=== PATIENT | male | born 1960 | race Caucasian/White ===

== ENCOUNTER → 2021-07-23 | Day surgery (SDC) | payer BC | END | disposition home or self-care (01) | LOC: MSO 08:22 | DX: K52.9 Noninfective gastroenteritis and colitis, unspecified (principal); G47.33 Obstructive sleep apnea (adult) (pediatric); Z99.89 Dependence on other enabling machines and devices; Z85.828 Personal history of other malignant neoplasm of skin; Z80.0 Family history of malignant neoplasm of digestive organs | CPT/HCPCS: 00811; J2704; J3010; J7120 ==

== ENCOUNTER → 2021-11-08 | Outpatient (CLI) | payer BC | LOC: LAB 09:36 | DX: K52.9 Noninfective gastroenteritis and colitis, unspecified (principal) ==

== ENCOUNTER → 2021-11-13 | Outpatient (CLI) | payer BC | LOC: LAB 09:12 | DX: K52.9 Noninfective gastroenteritis and colitis, unspecified (principal) ==

== ENCOUNTER 2022-01-08 09:22 | Emergency (ER) | payer BC ==
[~2022-01-08] VITALS: Ht 190.5 cm; Wt 131.3 kg
[2022-01-08 10:23] LABS: HEMATOCRIT 44.8 % (42.0-52.0); HEMOGLOBIN 14.9 g/dL (13.5-18.0); MEAN CELL VOLUME 85 fl (78-100); MEAN CORPUSCULAR HEMOGLOBIN 28 pg (27-31); MEAN CORPUSCULAR HGB CONC 33 g/dL (33-37); MEAN PLATELET VOLUME 10.3 fl (7.4-10.4); PLATELET COUNT 289 K/mm3 (130-400); RED BLOOD COUNT 5.29 M/mm3 (4.20-5.60); RED CELL DISTRIBUTION WIDTH 13.8 % (11.5-14.5)
[2022-01-08 10:42] LABS: ALBUMIN 3.9 g/dL (3.5-5.0); POTASSIUM 4.1 mmol/L (3.5-5.1); SODIUM 137 mmol/L (136-145)
[2022-01-08 10:43] LABS: CALCIUM 9.3 mg/dL (8.3-10.5)
[2022-01-08 10:44] LABS: GLUCOSE 103 mg/dL (75-110); TOTAL PROTEIN 8.1 g/dL (6.4-8.3)
[2022-01-08 10:45] LABS: CARBON DIOXIDE 22 mmol/L (22-29)
[2022-01-08 10:46] LABS: TOTAL BILIRUBIN 0.5 mg/dL (0.2-1.2)
[2022-01-08 10:49] LABS: AST-SGOT 22 U/L (5-34)
[2022-01-08 10:51] LABS: ALT/SGPT 27 U/L (0-55)
[2022-01-08 10:56] LABS: D-DIMER 3.41 mg/L FEU (0.15-0.50)
[2022-01-08 10:58] LABS: TROPONIN-I < 0.030 ng/mL (<0.030)
[2022-01-08 11:48] LABS: HEMATOCRIT 45.1 % (42.0-52.0); HEMOGLOBIN 14.6 g/dL (13.5-18.0); MEAN PLATELET VOLUME 10.9 fl (7.4-10.4); RED BLOOD COUNT 5.14 M/mm3 (4.20-5.60); WHITE BLOOD COUNT 13.5 K/mm3 (4.8-10.8)
[2022-01-08 12:04] LABS: MONOCYTE 18 % (3-10)
[2022-01-08 12:05] LABS: LYMPHOCYTE 16 % (20-51); NEUTROPHILS 65 % (42-75)
[2022-01-08 12:17] LABS: PARTIAL THROMBOPLASTIN TIME 22.7 SECONDS (21.0-32.0); PROTHROMBIN TIME 10.4 SECONDS (9.0-12.0)
[2022-01-08 21:05] LABS: PARTIAL THROMBOPLASTIN TIME 49.7 SECONDS (21.0-32.0)
[2022-01-08 22:15] VITALS: BP 139/79
== END 2022-01-08 22:15 | disposition short-term general hospital (02) ==
LOC: ED 09:22
PROVIDERS: Internal Medicine; Physician Assistant
DX: I26.99 Other pulmonary embolism without acute cor pulmonale (principal); Z20.822 Contact with and (suspected) exposure to COVID-19; Z28.310 Unvaccinated for COVID-19
CPT/HCPCS: J1644; J2270; J3010; J7040; Q9967

== ENCOUNTER → 2022-01-16 | Outpatient (CLI) | payer BC ==
[2022-01-16 10:32] LABS: BASO # 0.01 K/mm3 (0.02-0.10); EOS # 0.03 K/mm3 (0.04-0.40); EOS % 0.2 % (0.0-4.0); HEMATOCRIT 44.7 % (42.0-52.0); HEMOGLOBIN 14.9 g/dL (13.5-18.0); LYMPH# 1.87 K/mm3 (1.50-4.00); MEAN CELL VOLUME 84 fl (78-100); MEAN CORPUSCULAR HEMOGLOBIN 28 pg (27-31); MEAN CORPUSCULAR HGB CONC 33 g/dL (33-37); MEAN PLATELET VOLUME 9.2 fl (7.4-10.4); MONO # 0.98 K/mm3 (0.20-0.80); NEU # 10.38 K/mm3 (1.40-6.50); PLATELET COUNT 477 K/mm3 (130-400); RED BLOOD COUNT 5.32 M/mm3 (4.20-5.60); RED CELL DISTRIBUTION WIDTH 14.1 % (11.5-14.5); WHITE BLOOD COUNT 13.4 K/mm3 (4.8-10.8)
[2022-01-16 10:37] LABS: ALBUMIN 3.7 g/dL (3.5-5.0); POTASSIUM 4.4 mmol/L (3.5-5.1)
[2022-01-16 10:38] LABS: CALCIUM 9.4 mg/dL (8.3-10.5)
[2022-01-16 10:41] LABS: TOTAL BILIRUBIN 1.1 mg/dL (0.2-1.2)
[2022-01-16 13:05] LABS: URINE APPEARANCE CLEAR; URINE BILIRUBIN NEGATIVE (NEGATIVE); URINE BLOOD NEGATIVE (NEGATIVE); URINE COLOR YELLOW; URINE GLUCOSE NEGATIVE (NEGATIVE); URINE KETONE NEGATIVE (NEGATIVE); URINE LEUKOCYTE ESTERASE NEGATIVE (NEGATIVE); URINE NITRATE NEGATIVE (NEGATIVE); URINE PROTEIN(semi-quant) NEGATIVE (NEGATIVE); URINE UROBILINOGEN NORMAL (NORMAL)
[2022-01-16 13:06] LABS: URINE MUCUS PRESENT (NOT PRESENT)
== END ==
LOC: LAB 09:54
PROVIDERS: Nurse Practitioner Family
DX: D72.829 Elevated white blood cell count, unspecified (principal); T78.3XXA Angioneurotic edema, initial encounter

== ENCOUNTER → 2023-06-09 | Outpatient (CLI) | payer BC ==
[~2023-06-09] MED LIST: SINGULAIR PO; TORSEMIDE10 M1 PO
== END ==
LOC: RAD 13:10
DX: M25.511 Pain in right shoulder (principal)